=== PATIENT | male | born 1985 | race African-American/Black ===

== ENCOUNTER 2016-09-27 12:53 | Emergency (ER) | payer OTHER ==
--- NOTE | 2016-09-27 13:06 | ED GENERAL ADULT ---
History of Present Illness General Chief Complaint: Psychiatric Related Complaint Stated Complaint: BIBA FOR PSYCH Source: old records, EMS, police Exam Limitations: intoxication Vital Signs & Intake/Output Vital Signs & Intake/Output Vital Signs Date Time Temp Pulse Resp B/P Pulse O2 O2 Flow FiO2 Ox Delivery Rate 09/27 1849 97.0 68 16 100/54 98 Room Air 09/27 1559 96.0 79 18 109/65 98 Room Air 09/27 1438 95.3 80 16 99/58 95 Room Air 09/27 1425 80 16 Reconcile Medications No Known Home Medications Triage Nurses Notes Reviewed? yes HPI: Patient was with his girlfriend at her house when she called 911 because he was very intoxicated and agitated. His girlfriend denies any trauma. She states that he drinks regularly and does not know of any drug use. Patient very belligerent. Patient placed on a police paper. Patient is very belligerent and refusing to answer any questions upon arrival to the emergency department. Patient required restraints and chemical sedation. (FRANK PINZON,ZULY Dwyer) Past History Medical History Any Pertinent Medical History? none Surgical History Surgical History: non-contributory Psychosocial History Tobacco Use: Cognitive Impairment ETOH Use: heavy use Family History Hx Contributory? No (FRANK PINZON,ZULY Dwyer) Review of Systems Review of Systems Constitutional: Reports: see HPI. Neurological/Psychological: Reports: see HPI, other (AGITATED). (FRANK PINZON,ZULY Dwyer) Physical Exam Physical Exam General Appearance: well developed/nourished, awake, severe distress, intoxicated Head: atraumatic Eyes: Bilateral: PERRL, EOMI, other (SLUGGISH). Ears, Nose, Throat: normal pharynx Neck: normal inspection, supple Respiratory: normal breath sounds, chest non-tender, no respiratory distress, lungs clear Cardiovascular: regular rate/rhythm, normal peripheral pulses Gastrointestinal: normal bowel sounds, soft Neurologic/Psych: awake, MOVES ALL 4 EXTREMITIES. nOT FOLLOWING ANY COMMANDS. vERY AGITATED AND COMBATIVE. Core Measures ACS in differential dx? No CVA/TIA Diagnosis: No Severe Sepsis Present: No Septic Shock Present: No (FRANK PINZON,ZULY Dwyer) Progress Differential Diagnoses I considered the following diagnoses in my evaluation of the patient: [Alcohol intoxication, drug intoxication, electrolyte abnormality,] Plan of Care: Orders Procedure Date/time Status Regular Diet 09/28 B Active URINE DRUGS OF ABUSE 09/27 130 Active ETHANOL 09/27 130 Complete COMPREHENSIVE METABOLIC PANEL 09/27 130 Complete CBC WITHOUT DIFFERENTIAL 09/27 130 Complete Patient Safety Monitor 09/27 130 Active Restraint- Behavioral (Initial 09/27 130 Active Laboratory Tests 09/27/16 1415: Anion Gap 15, Estimated GFR > 60, BUN/Creatinine Ratio 14.0, Glucose 77, Calcium 8.7, Total Bilirubin 0.4, AST 34, ALT 38, Alkaline Phosphatase 73, Total Protein 7.1, Albumin 4.6, Globulin 2.5, Albumin/Globulin Ratio 1.8, CBC w Diff NO MAN DIFF REQ, RBC 4.14 L, MCV 97.2 H, MCH 32.9 H, RDW 12.9, MPV 7.9, Gran % 38.0 L, Lymphocytes % 53.5 H, Monocytes % 6.8, Eosinophils % 1.0, Basophils % 0.7, Absolute Granulocytes 1.3 L, Absolute Lymphocytes 1.9, Absolute Monocytes 0.2, Absolute Eosinophils 0, Absolute Basophils 0, PUBS MCHC 33.9, Serum Alcohol 360.0 Initial ED EKG: none Hand-Off Endorsed To: LIBORIO IRVAS MD Endorsed Time: 1445 Pending: labs (ZULY MARIE MD) Hand-Off Endorsed To: CHRISTI WONG MD Endorsed Time: 1929 Pending: other (SOBRIETY) (LIBORIO RIVAS MD) Departure Departure Disposition: STILL A PATIENT Condition: Stable Clinical Impression Primary Impression: Alcohol intoxication Departure Forms: Customer Survey General Discharge Information Prescriptions: Current Visit Scripts No Known Home Medications (ZULY MARIE MD) PA/DISCHARGE PLANNER Co-Sign Statement Statement: ED Attending supervision documentation- x I saw and evaluated the patient. I have also reviewed all the pertinent lab results and diagnostic results. I agree with the findings and the plan of care as documented in the PA's/DISCHARGE PLANNER's documentation. [] I have reviewed the ED Record and agree with the PA's/DISCHARGE PLANNER's documentation. [] Additions or exceptions (if any) to the PAs/DISCHARGE PLANNER's note and plan are summarized below: [] (CHRISTI WONG MD) Critical Care Note Critical Care Note Critical Care Time: mins: (45 MINUTES) (ZULY MARIE MD.)
[2016-09-27 14:29] LABS: ABSOLUTE BASOPHIL COUNT 0 /CUMM (0.0-0.2); ABSOLUTE EOSINOPHIL COUNT 0 /CUMM (0.0-0.7); ABSOLUTE GRANULOCYTE CT 1.3 /CUMM (1.4-6.5); ABSOLUTE LYMPH COUNT 1.9 /CUMM (1.2-3.4); ABSOLUTE MONOCYTE COUNT 0.2 /CUMM (0.10-0.60); BASOPHIL % 0.7 % (0.0-2.0); MEAN CORPUSCULAR HGB CONC 33.9 G/DL (33.0-37.0); MEAN PLATELET VOLUME 7.9 FL (7.4-10.4); PLATELET COUNT 227 /CUMM (130-400); RBC DISTRIBUTION WIDTH 12.9 % (11.5-14.5); RED BLOOD CELL CT 4.14 /CUMM (4.70-6.10); WHITE BLOOD CELL COUNT 3.5 /CUMM (4.8-10.8)
[2016-09-27 14:34] LABS: HEMATOCRIT 40.3 % (42-52); MEAN CORPUSCULAR HGB 32.9 PG (27.0-31.0); MEAN CORPUSCULAR VOLUME 97.2 FL (80.0-94.0)
[2016-09-28 06:25] VITALS: BP 111/68
== END 2016-09-28 07:50 ==
LOC: EDBD 12:53 → ERH 12:53
PROVIDERS: Emergency Medicine
DX: F10.129 Alcohol abuse with intoxication, unspecified (principal); R45.1 Restlessness and agitation
CPT/HCPCS: 80307; 96372; 99291; G0480; J1200; J1630